=== PATIENT | female | born 1950 | race Caucasian/White ===

== ENCOUNTER 2019-12-24 07:12 | Emergency (ER) | payer OTHER ==
[~2019-12-24] VITALS: Ht 165.1 cm; Wt 89.6 kg
[2019-12-24] MEDS ORDERED: ROPINIROLE HCL3 MG PO (07:21)
[2019-12-24] MEDS ORDERED: LIPITOR80 MG GT (07:21)
[2019-12-24] MEDS ORDERED: LEXAPRO20 MG PO (07:21)
[2019-12-24] MEDS ORDERED: LISINOPRIL30 MG PO (07:21)
[2019-12-24] MEDS ORDERED: MULTIVITAMINS1 EAC7 PO (07:22)
[2019-12-24] MEDS ORDERED: IRON325 M1 PO (07:22)
[2019-12-24] MEDS ORDERED: GLUCOPHAGE500 MG PO (07:22)
[2019-12-24] MEDS ORDERED: VITAMIN C500 M5 PO (07:23)
[2019-12-24] MEDS ORDERED: CALCIUM500 MG PO (07:23)
[2019-12-24] MEDS ORDERED: VITAMIN B COMP1 EACH PO (07:23)
== END 2019-12-24 08:00 | disposition home or self-care (01) ==
LOC: ED 07:12
DX: T88.1XXA Other complications following immunization, not elsewhere classified, initial encounter (principal); R22.32 Localized swelling, mass and lump, left upper limb; T50.Z95A Adverse effect of other vaccines and biological substances, initial encounter; Z88.2 Allergy status to sulfonamides; Z88.8 Allergy status to other drugs, medicaments and biological substances; Z79.899 Other long term (current) drug therapy; Z79.84 Long term (current) use of oral hypoglycemic drugs
CPT/HCPCS: 99283

== ENCOUNTER 2020-12-14 08:27 | Emergency (ER) | payer OTHER ==
[~2020-12-14] VITALS: Ht 165.1 cm; Wt 77.1 kg
[~2020-12-14 08:27] MED LIST: CALCIUM500 MG PO; GLUCOPHAGE500 MG PO; IRON325 M1 PO; LEXAPRO20 MG PO; LIPITOR80 MG GT; LISINOPRIL30 MG PO; MULTIVITAMINS1 EAC7 PO; ROPINIROLE HCL3 MG PO; VITAMIN B COMP1 EACH PO; VITAMIN C500 M5 PO
[2020-12-14] MEDS ORDERED: SUDOGEST30 MG PO (09:51)
== END 2020-12-14 10:00 | disposition home or self-care (01) ==
LOC: ED 08:27
DX: J06.9 Acute upper respiratory infection, unspecified (principal); H69.93 Unspecified Eustachian tube disorder, bilateral; Z20.822 Contact with and (suspected) exposure to COVID-19; E11.9 Type 2 diabetes mellitus without complications; I10 Essential (primary) hypertension; E78.5 Hyperlipidemia, unspecified; Z88.2 Allergy status to sulfonamides; Z88.8 Allergy status to other drugs, medicaments and biological substances; Z79.899 Other long term (current) drug therapy; Z79.84 Long term (current) use of oral hypoglycemic drugs
CPT/HCPCS: 87081; 99284; J1100; U0003

== ENCOUNTER 2021-03-26 06:05 | Emergency (ER) | payer OTHER ==
[~2021-03-26] VITALS: Ht 165.1 cm; Wt 89.5 kg
[~2021-03-26 06:05] MED LIST changes: +SUDOGEST30 MG PO
[2021-03-26] MEDS ORDERED: HYDROCODON-ACE1 EA10 PO (07:56)
[2021-03-26] MEDS ORDERED: ONDANSETRON ODT8 MG PO (07:56)
== END 2021-03-26 08:58 | disposition home or self-care (01) ==
LOC: ED 06:05
DX: N20.1 Calculus of ureter (principal); E11.9 Type 2 diabetes mellitus without complications; I10 Essential (primary) hypertension; E78.5 Hyperlipidemia, unspecified; G25.81 Restless legs syndrome; Z88.2 Allergy status to sulfonamides; Z88.8 Allergy status to other drugs, medicaments and biological substances; Z79.899 Other long term (current) drug therapy
CPT/HCPCS: 36415; 74176; 80053; 81001; 85025; 96374; 96375; 99284-25; J1885; J2270; J2405; J7030

== ENCOUNTER 2021-07-02 10:36 | Emergency (ER) | payer OTHER ==
[~2021-07-02] VITALS: Ht 165.1 cm; Wt 89.7 kg
[~2021-07-02 10:36] MED LIST changes: +HYDROCODON-ACE1 EA10 PO; +ONDANSETRON ODT8 MG PO
--- OUTSIDE RECORDS SUMMARY | 2021-07-02 10:38 | XMS ---
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 [employer]ster VISIT COUNT (12 MO.) 3 NADIYA Evans TOTAL 3 NOTE: Visits indicate total known visits. ED/UCC VISIT TRACKING (12 MO.) 07/02/2021 10:37 NADIYA [facility] [place] TYPE: Emergency COMPLAINT: - L FLANK PAIN, BLOOD URINE 03/26/2021 06:06 NADIYA [facility] [place] TYPE: Emergency COMPLAINT: - R FLANK/GROIN PAIN, N/V DIAGNOSES: - Restless legs syndrome - Allergy status to sulfonamides - Other correction (current) drug therapy - Type 2 diabetes mellitus without complications - Unspecified abdominal pain - Allergy status to other drugs, medicaments and biological substances - Essential (primary) hypertension - Calculus of ureter - Hyperlipidemia, unspecified 12/14/2020 08:28 NADIYA [facility] [place] TYPE: Emergency COMPLAINT: - SORE THROAT,EARS ITCHING DIAGNOSES: - Acute upper respiratory infection, unspecified - Unspecified Eustachian tube disorder, bilateral - Allergy status to sulfonamides - Acute pharyngitis, unspecified - Allergy status to other drugs, medicaments and biological substances - Type 2 diabetes mellitus without complications - Essential (primary) hypertension - Other correction (current) drug therapy - Hyperlipidemia, unspecified - detention (current) use of oral hypoglycemic drugs INPATIENT VISIT TRACKING (12 MO.) No inpatient visits to display in this time frame [id number]
[2021-07-02] MEDS ORDERED: FLOMAX0.4 MG PO (11:47)
[2021-07-02] MEDS ORDERED: HYDROCODON-ACE1 EA10 PO (11:47)
[2021-07-02] MEDS ORDERED: ONDANSETRON ODT4 MG PO (11:47)
[2021-07-02] MEDS ORDERED: MACROBID 100 M100 MG PO (12:44)
== END 2021-07-02 12:51 | disposition home or self-care (01) ==
LOC: ED 10:36
DX: R31.9 Hematuria, unspecified (principal); N20.2 Calculus of kidney with calculus of ureter; E11.9 Type 2 diabetes mellitus without complications; I10 Essential (primary) hypertension; E78.5 Hyperlipidemia, unspecified; G25.81 Restless legs syndrome; Z88.2 Allergy status to sulfonamides; Z88.8 Allergy status to other drugs, medicaments and biological substances; Z79.899 Other long term (current) drug therapy
CPT/HCPCS: 81001; 99284

== ENCOUNTER 2021-10-24 21:07 | Emergency (ER) | payer OTHER ==
[~2021-10-24] VITALS: Ht 165.1 cm; Wt 89.7 kg
[~2021-10-24 21:07] MED LIST changes: +FLOMAX0.4 MG PO; +MACROBID 100 M100 MG PO; +ONDANSETRON ODT4 MG PO
--- OUTSIDE RECORDS SUMMARY | 2021-10-24 21:08 | XMS ---
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 [employer]ster VISIT COUNT (12 MO.) 4 NADIYA Evans TOTAL 4 NOTE: Visits indicate total known visits. 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 - Type 2 diabetes mellitus without complications - Allergy status to sulfonamides - Calculus of kidney with calculus of ureter - Hyperlipidemia, unspecified - Unspecified abdominal pain 03/26/2021 06:06 NADIYA [facility] [place] TYPE: Emergency COMPLAINT: - R FLANK/GROIN PAIN, N/V DIAGNOSES: - Allergy status to sulfonamides - Hyperlipidemia, unspecified - Essential (primary) hypertension - Unspecified abdominal pain - Other fpc (current) drug therapy - Restless legs syndrome - Calculus of ureter - Allergy status to other drugs, medicaments and biological substances - Type 2 diabetes mellitus without complications 12/14/2020 08:28 NADIYA [facility] [place] TYPE: Emergency COMPLAINT: - SORE THROAT,EARS ITCHING DIAGNOSES: - Unspecified Eustachian tube disorder, bilateral - Other jump roll operator (current) 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
[2021-10-24] MEDS ORDERED: AMOX TR-K CLV1 EAC1 PO (22:59)
== END 2021-10-24 23:24 | disposition home or self-care (01) ==
LOC: ED 21:07
DX: J32.9 Chronic sinusitis, unspecified (principal); E11.9 Type 2 diabetes mellitus without complications; E78.5 Hyperlipidemia, unspecified; I10 Essential (primary) hypertension; Z88.2 Allergy status to sulfonamides; Z88.8 Allergy status to other drugs, medicaments and biological substances; Z79.899 Other long term (current) drug therapy
CPT/HCPCS: 99283

== ENCOUNTER 2022-05-04 11:30 | Emergency (ER) | payer OTHER ==
[~2022-05-04] VITALS: Ht 165.1 cm; Wt 89.7 kg
[~2022-05-04 11:30] MED LIST changes: +AMOX TR-K CLV1 EAC1 PO
[2022-05-04] MEDS ORDERED: PENICILLIN V P500 MG PO (12:53)
== END 2022-05-04 12:59 | disposition home or self-care (01) ==
LOC: ED 11:30
DX: K02.9 Dental caries, unspecified (principal); E11.9 Type 2 diabetes mellitus without complications; I10 Essential (primary) hypertension; E78.5 Hyperlipidemia, unspecified; Z88.2 Allergy status to sulfonamides; Z88.8 Allergy status to other drugs, medicaments and biological substances; Z79.899 Other long term (current) drug therapy
CPT/HCPCS: 99282

== ENCOUNTER 2022-10-24 11:26 | Emergency (ER) | payer OTHER ==
[~2022-10-24] VITALS: Ht 165.1 cm; Wt 87.2 kg
[~2022-10-24 11:26] MED LIST changes: +PENICILLIN V P500 MG PO
[2022-10-24 12:22] LABS: INFLUENZA B NAA NEGATIVE (NEGATIVE); RESPIRATORY SYNCYTIAL VIR NAA NEGATIVE (NEGATIVE)
[2022-10-24 12:37] VITALS: BP 00/00
== END 2022-10-24 12:37 | disposition left against medical advice (07) ==
LOC: ED 11:26
PROVIDERS: Emergency Medicine
DX: R05.9 Cough, unspecified (principal); H92.09 Otalgia, unspecified ear; R09.89 Other specified symptoms and signs involving the circulatory and respiratory systems; Z53.21 Procedure and treatment not carried out due to patient leaving prior to being seen by health care provider
CPT/HCPCS: 87502; U0002

== ENCOUNTER 2024-04-26 13:07 | Emergency (ER) | payer OTHER ==
[~2024-04-26] VITALS: Ht 165.1 cm; Wt 87.0 kg
[2024-04-26] MEDS ORDERED: ELIQUIS5 MG PO (13:27)
[2024-04-26] MEDS ORDERED: METOPROLOL TART25 MG PO (13:27)
[2024-04-26 13:47] LABS: CORONAVIRUS COVID-19 AG NEGATIVE (NEGATIVE); INFLUENZA A AG NEGATIVE (NEGATIVE); INFLUENZA B AG NEGATIVE (NEGATIVE)
[2024-04-26 15:14] VITALS: BP 142/74
== END 2024-04-26 15:15 | disposition home or self-care (01) ==
LOC: ED 13:07
PROVIDERS: Emergency Medicine
DX: J06.9 Acute upper respiratory infection, unspecified (principal); E11.9 Type 2 diabetes mellitus without complications; I10 Essential (primary) hypertension; E78.5 Hyperlipidemia, unspecified; Z88.2 Allergy status to sulfonamides; Z88.8 Allergy status to other drugs, medicaments and biological substances; Z79.01 Long term (current) use of anticoagulants; Z79.899 Other long term (current) drug therapy
CPT/HCPCS: 36415; 87651; 99283

== ENCOUNTER 2024-05-07 19:30 | Emergency (ER) | payer OTHER ==
[~2024-05-07] VITALS: Ht 167.6 cm; Wt 83.5 kg
[~2024-05-07 19:30] MED LIST changes: +ELIQUIS5 MG PO; +METOPROLOL TART25 MG PO
--- OUTSIDE RECORDS SUMMARY | 2024-05-07 19:36 | XMS ---
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 Sophia VISIT COUNT (12 MO.) [address] TOTAL 3 NOTE: Visits indicate total known visits. 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
[2024-05-07] MEDS ORDERED: CEFTRIAXONE SODIUM 2 GM VIAL ONE (19:58)
[2024-05-07] MEDS ORDERED: SODIUM CHLORIDE 0.9% 1,000 ML IV ONE (20:00)
[2024-05-07] MEDS ORDERED: CEFTRIAXONE SODIUM 2 GM in SODIUM CHLORIDE 0.9% 100 ML IV ONE (20:00)
[2024-05-07] MEDS ORDERED: ALBUTEROL/IPRATROPIUM 3 ML NEB INH ONE (20:15)
[2024-05-07] MEDS ORDERED: FAMOTIDINE 20 MG/ 2 ML VIAL IV ONE (20:15)
[2024-05-07] MEDS ORDERED: ondansetron HCL 4 MG/2 ML VIAL IV ONE (20:15)
[2024-05-07] MEDS ORDERED: methylPREDNISolone SOD SUCC 125 MG/2 ML VIAL IV ONE (20:15)
[2024-05-07] MEDS ORDERED: ACETAMINOPHEN 500 MG TAB PO ONE (20:15)
[2024-05-07 20:18] LABS: BASOPHILS 0.3 % (0-2); EOSINOPHILS 0.4 % (0-6); HEMATOCRIT 41.5 % (35.0-50.0); HEMOGLOBIN 14.1 g/dL (12.0-18.0); LYMPHOCYTES 12.2 % (24-44); MCH 30.4 (27-36); MCV 89.4 fl (81-99); MONOCYTES 7.8 % (0-12); NEUTROPHILS 79.3 % (39-80); PLATELET COUNT 255 K/uL (140-440); RBC 4.64 M/ul (4.3-5.7); RDW 14.9 (10.5-15.0)
[2024-05-07 20:30] LABS: INR 1.16 (0.80-1.30); PARTIAL THROMBOPLASTIN TIME 33.6 Sec (22.9-41.3); PROTIME 14.7 Sec (11.2-14.2)
[2024-05-07 20:38] LABS: LACTIC ACID, BLOOD 1.1 mmol/L (0.4-2.0)
[2024-05-07 20:47] LABS: ALBUMIN 3.9 g/dL (3.4-5.0); ANION GAP 17.2 (7-21); BILIRUBIN, TOTAL 0.6 mg/dL (0.2-1.0); CALCIUM 9.5 mg/dL (8.5-10.1); CREATININE, SERUM 0.6 mg/dL (0.55-1.02); MAGNESIUM 1.7 mg/dL (1.8-2.4); POTASSIUM 3.2 mmol/L (3.5-5.1); PROTEIN, TOTAL 7.8 g/dL (6.4-8.2)
[2024-05-07 21:31] LABS: CORONAVIRUS COVID-19 AG NEGATIVE (NEGATIVE); INFLUENZA A AG NEGATIVE (NEGATIVE); INFLUENZA B AG NEGATIVE (NEGATIVE)
[2024-05-07 21:34] LABS: BILIRUBIN, URINE NEGATIVE (negative); BLOOD/HGB, URINE NEGATIVE (Negative); KETONE, URINE TRACE (Negative); LEUK ESTERASE, URINE NEGATIVE (negative); NITRITE, URINE NEGATIVE (negative)
[2024-05-07] MEDS ORDERED: AZITHROMYCIN 250 MG TAB PO ONE (21:45)
[2024-05-07] MEDS ORDERED: ALBUTEROL SULFATE 8 GM HOME.PACK INH ONE (21:45)
[2024-05-07] MEDS ORDERED: INHALER, ASSIST DEVICES 1 EACH SPACER MISC ONE (21:45)
[2024-05-07] MEDS ORDERED: ZITHROMAX250 MG PO (21:51)
[2024-05-07] MEDS ORDERED: AMOX TR-K CLV1 EAC1 PO (21:51)
[2024-05-07] MEDS ORDERED: PREDNISONE20 MG PO (21:53)
[2024-05-07 22:23] VITALS: BP 112/75
--- NOTE | 2024-05-08 21:29 | EKG ---
[facility] [address] [facility] [place], [place] [address] Signed Normal sinus rhythm Normal ECG No previous ECGs available Confirmed by Cintia Raman DO ([id number]) on 05/08/2024 9:29:34 PM Electronically Signed By: CINTIA RAMAN DO 05/08/242128 PATIENT NAME: STEPHANIE MO Electrocardiogram DATE OF : 52 PHYSICIAN: CINTIA RAMAN DO REPORT #: [id number] REPORT IS CONFIDENTIAL AND NOT TO BE RELEASED WITHOUT AUTHORIZATION
== END 2024-05-07 22:15 | disposition home or self-care (01) ==
LOC: ED 19:30
PROVIDERS: Internal Medicine
DX: J18.9 Pneumonia, unspecified organism (principal); I10 Essential (primary) hypertension; E11.9 Type 2 diabetes mellitus without complications; E78.5 Hyperlipidemia, unspecified; Z79.899 Other long term (current) drug therapy; Z88.2 Allergy status to sulfonamides; Z88.8 Allergy status to other drugs, medicaments and biological substances
CPT/HCPCS: 36415; 51701; 71045; 80053; 81003; 83605; 83735; 83880; 84484; 85025; 85610; 85730; 87040; 93005; 93010; 94640; 94664; 99285-25; A9270; J0696; J2405; J2919; J7030

== ENCOUNTER 2024-09-05 16:52 | Emergency (ER) | payer OTHER ==
[~2024-09-05] VITALS: Ht 167.6 cm; Wt 85.0 kg
[~2024-09-05 16:52] MED LIST changes: +PREDNISONE20 MG PO; +ZITHROMAX250 MG PO
[2024-09-05 17:56] VITALS: BP 121/78
== END 2024-09-05 17:57 | disposition home or self-care (01) ==
LOC: ED 16:52
DX: S90.32XA Contusion of left foot, initial encounter (principal); I10 Essential (primary) hypertension; E11.9 Type 2 diabetes mellitus without complications; E78.5 Hyperlipidemia, unspecified; Z88.2 Allergy status to sulfonamides; Z88.8 Allergy status to other drugs, medicaments and biological substances; Z79.01 Long term (current) use of anticoagulants; Z79.899 Other long term (current) drug therapy; W20.8XXA Other cause of strike by thrown, projected or falling object, initial encounter
CPT/HCPCS: 73630; 99283